=== PATIENT | female | born 1985 | race Caucasian/White ===

== ENCOUNTER 2022-07-16 10:10 | Day surgery (SDC) | payer OTHER ==
[~2022-07-16 10:10] MED LIST: WELLBUTRIN XL300 MG PO
== END 2022-07-16 17:50 | disposition home or self-care (01) ==
LOC: CIR.AMB 10:10 → ADM 11:15 → CIR.AMB 11:15
PROVIDERS: ATTEND Student in an Organized Health Care Education/Training Program
DX: O02.1 Missed abortion (principal); O72.2 Delayed and secondary postpartum hemorrhage; Z20.822 Contact with and (suspected) exposure to COVID-19; Z87.891 Personal history of nicotine dependence